=== PATIENT | female | born 1970 | race Caucasian/White ===

== ENCOUNTER 2017-02-01 19:20 | Emergency (ER) | payer OTHER ==
--- NOTE | 2017-02-01 19:23 | PDOC ---
History of Present Illness - General History Source: Patient Exam Limitations: No Limitations - History of Present Illness Initial Comments: 02/01/17 19:48 46 y/o F with a PMH of HTN presents to the ED with dry cough today. Patient states that the past two days she has been cleaning and dusting around the house and initially attributed her cough to dust/allergies. However, this afternoon she began to have a runny nose and sore throat. She also reports associated wheezing. Patient reports she smokes 4 cigarettes per day. She denies recent illness or travel. She denies fever, chills. Denies chest pain, shortness of breath. Denies any other symptoms. FHx: COPD (mother); Lung CA (father) 02/01/17 19:50 <Peg Bender - Last Filed: 02/01/17 19:50> <Gracie Frank - Last Filed: 02/01/17 22:00> - General Chief Complaint: Respiratory Stated Complaint: COUGH,WHEEZING Time Seen by Provider: 02/01/17 19:22 Past History <Peg Bender - Last Filed: 02/01/17 19:50> <Gracie Frank - Last Filed: 02/01/17 22:00> - Past Medical History Allergies/Adverse Reactions: Allergies Allergy/AdvReac Type Severity Reaction Status Date / Time No Known Allergies Allergy Verified 02/01/17 19:21 Home Medications: Ambulatory Orders Albuterol Sulfate Inhaler - [Ventolin HFA Inhaler -] 1 - 2 inh PO Q4H PRN #1 inhaler 02/01/17 Olmesartan Medoxomil [Benicar] 20 mg PO DAILY 02/01/17 Review of Systems - Review of Systems Able to Perform ROS?: Yes Constitutional: No: Chills, Fever, Weakness HEENTM: Yes: Throat Pain, Other (runny nose) Respiratory: Yes: Cough, Wheezing. No: Shortness of Breath Cardiac (ROS): No: Chest Pain, Lightheadedness, Palpitations ABD/GI: No: Symptoms Reported : No: Symptoms Reported Neurological: No: Symptoms reported All Other Systems: Reviewed and Negative <Peg Bender - Last Filed: 02/01/17 19:50> *Physical Exam - Vital Signs Last Vital Signs Temp Pulse Resp BP Pulse Ox 98.4 F 94 H 20 151/85 99 02/01/17 19:23 02/01/17 19:23 02/01/17 19:23 02/01/17 19:23 02/01/17 19:23 - Physical Exam Comments: 02/01/17 19:48 GENERAL: The patient is awake, alert, and fully oriented, in no acute distress. HEAD: Normal with no signs of trauma. EYES: Pupils equal, round and reactive to light, extraocular movements intact, sclera anicteric, conjunctiva clear with no pallor. ENT: Ears normal, nares patent, oropharynx clear without exudates. Moist mucous membranes. NECK: Normal range of motion, supple without lymphadenopathy, JVD, or masses. LUNGS: Bilateral scattered expiratory wheezing HEART: Regular rate and rhythm, normal S1 and S2 without murmur or rub. ABDOMEN: Soft/nontender/nondistended. BS wnl. No guarding or rebound. No palpable masses. No hepatosplenomegaly. EXTREMITIES: Normal range of motion, no edema. No clubbing or cyanosis. No cords, erythema, or tenderness. NEUROLOGICAL: Cranial nerves II through XII grossly intact. Normal speech, normal gait. PSYCH: Normal mood, normal affect. SKIN: Warm, Dry, normal turgor, no rashes or lesions noted. <Peg Bender - Last Filed: 02/01/17 19:50> ED Treatment Course - Medications Given in the ED: ED Medications Discontinued Medications Generic Name Dose Route Start Last Admin Trade Name Freq PRN Reason Stop Dose Admin Albuterol/Ipratropium 1 amp 02/01/17 19:44 02/01/17 19:47 Duoneb - NEB 02/01/17 19:45 1 amp ONCE ONE Administration <Peg Bender - Last Filed: 02/01/17 19:50> Progress Note - Progress Note Progress Note: Documentation has been prepared under my direction and personally reviewed by me in its entirety. I attest that this documented accurately reflects all work, treatment, procedures and medical decision making performed by me. <Gracie Frank - Last Filed: 02/01/17 22:00> Medical Decision Making - Medical Decision Making As noted above, this 46-year-old woman, smoker but no known history of asthma or COPD, presents with a one-day history of nonproductive cough. She states that she heard wheezing at home. No fever noted. On exam, patient has scattered expiratory wheezing bilaterally but is in no respiratory distress, speaking in full sentences. After DuoNeb treatment, patient feels markedly better and lung exam is clear. Patient will be discharged with prescription for albuterol inhaler sent to pharmacy. Patient should use as needed (2 puffs every 4-6 hours) for wheezing. She should return to the ER if she has persistent wheezing/shortness of breath or high fever with productive cough. Otherwise, she should follow up with her PMD, Dr. Canela within the next 3-4 days <Gracie Frank - Last Filed: 02/01/17 22:00> *DC/Admit/Observation/Transfer - Attestations Scribe Attestion: 02/01/17 19:50 Documentation prepared by Peg Bender, acting as medical transcription supervisor for Gracie Frank MD. <Peg Bender - Last Filed: 02/01/17 19:50> <Gracie Frank - Last Filed: 02/01/17 22:00> Diagnosis at time of Disposition: Acute bronchitis Qualifiers: Bronchitis organism: unspecified organism Qualified Code(s): J20.9 - Acute bronchitis, unspecified - Discharge Dispostion Disposition: HOME Condition at time of disposition: Stable - Prescriptions Prescriptions: Albuterol Sulfate Inhaler - [Ventolin HFA Inhaler -] 1 - 2 inh PO Q4H PRN #1 inhaler PRN Reason: Wheezing - Referrals Referrals: Ronen Canela MD [Primary Care Provider] - - Patient Instructions Printed Discharge Instructions: DI for Acute Bronchitis, Smoking Cessation Additional Instructions: rest, drink plenty of fluids albuterol inhaler up to 4 times a day as needed for wheezing continue mucinex as previously avoid smoking Return to ER if you have persistent wheezing, shortness of breath, fever or productive cough Follow-up with Dr. Canela within the next 5 days - Post Discharge Activity
[2017-02-01 19:29] VITALS: BP 151/85; PULSE 94; TEMP 98.4; BMI 38.0
[2017-02-01] MEDS ORDERED: ALBUTEROL SO4 2.5/IPRATROPIUM 0.5 INH SOL 3 ML VIAL.NEB. NEB ONE ×2 (19:44)
== END 2017-02-01 20:25 | disposition home or self-care (01) ==
LOC: FER 19:20
PROC: 3E0F7GC Introduction of Other Therapeutic Substance into Respiratory Tract, Via Natural or Artificial Opening (ICD-10-PCS; principal; 2017-02-01)
DX: J20.9 Acute bronchitis, unspecified (principal)
CPT/HCPCS: 99281-25

== ENCOUNTER 2022-12-28 13:18 | Emergency (ER) | payer OTHER ==
[2022-12-28 13:37] VITALS: BP 159/85; PULSE 78; RESP 20; TEMP 99.2; BMI 41.3
[2022-12-28] MEDS ORDERED: guaiFENesin/CODEINE 10 ML UNIT-DOSE CUPS PO ONE (13:43)
[2022-12-28] MEDS ORDERED: DEXAMETHASONE 4 MG TABLET (FP) PO ONE (13:44)
[2022-12-28] MEDS ORDERED: guaiFENesin/CODEINE 10 ML UNIT-DOSE CUPS ONE (13:48)
[2022-12-28] MEDS ORDERED: DEXAMETHASONE 4 MG TABLET (FP) ONE (13:48)
[2022-12-28] MEDS ORDERED: ALBUTEROL SO4 2.5/IPRATROPIUM 0.5 INH SOL 3 ML VIAL.NEB. NEB ONE ×2 (13:52→14:43)
[2022-12-28] MEDS: ALBUTEROL SO4 2.5/IPRATROPIUM 0.5 INH SOL 3 ML VIAL.NEB. NEB SCH ×3 (13:58→14:51)
== END 2022-12-28 15:13 | disposition home or self-care (01) ==
LOC: FER 13:18
PROC: 3E0F7GC Introduction of Other Therapeutic Substance into Respiratory Tract, Via Natural or Artificial Opening (ICD-10-PCS; principal; 2022-12-28)
DX: R05.9 Cough, unspecified (principal); R07.81 Pleurodynia; B34.9 Viral infection, unspecified
CPT/HCPCS: 99283-25